=== PATIENT | female | born 1980 | race American Indian/Alaskan Native ===

== ENCOUNTER 2016-08-18 11:55 | Emergency (ER) | payer SELFPAY ==
[2016-08-18 13:32] VITALS: BP 152/93
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
== END 2016-08-18 16:44 | disposition left against medical advice (07) ==
LOC: ED 11:55
DX: M54.42 Lumbago with sciatica, left side (principal); R07.9 Chest pain, unspecified; M54.9 Dorsalgia, unspecified; Z53.21 Procedure and treatment not carried out due to patient leaving prior to being seen by health care provider